=== PATIENT | female | born 1950 | race Caucasian/White ===

== ENCOUNTER 2023-10-09 11:00 | Emergency (ER) | payer MEDICARE ==
[2023-10-09] MEDS ORDERED: Ketorolac Tromethamine 30 MG/ML VIAL ONE (11:41)
[2023-10-09] MEDS ORDERED: Morphine 4 MG/ML VIAL ONE ×2 (11:41→12:35)
[2023-10-09] MEDS ORDERED: Bacitracin 1 PK ONE (13:08)
== END 2023-10-09 13:32 | disposition home or self-care (01) ==
LOC: MADERS 11:00
DX: T25.291A Burn of second degree of multiple sites of right ankle and foot, initial encounter (principal); K21.9 Gastro-esophageal reflux disease without esophagitis; X11.8XXA Contact with other hot tap-water, initial encounter
CPT/HCPCS: 16020; 96372; 99283; J1885; J2270